=== PATIENT | male | born 1995 | race Caucasian/White ===

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

== ENCOUNTER 2018-08-02 06:24 | Day surgery (SDC) | payer OTHER ==
[~2018-08-02] VITALS: Ht 177.8 cm; Wt 88.0 kg
[2018-08-02] MEDS ORDERED: OXYMETAZOLINE NASAL SPRAY 0.05%, 15ML ONE (06:49)
[2018-08-02] MEDS ORDERED: EPINEPHRINE 1 MG/ML, 1ML ONE (06:49)
[2018-08-02] MEDS ORDERED: LIDOCAINE 1%, 20ML ONE (06:49)
[2018-08-02] MEDS ORDERED: EPINEPHRINE TOPICAL SOLN 1 MG/ML, 30ML ONE (06:49)
[2018-08-02] MEDS ORDERED: FLUORESCEIN SODIUM 500 MG/5 ML ONE (06:49)
[2018-08-02] MEDS ORDERED: BACITRACIN OINT 500U/GM, 15 GM ONE (06:50)
[2018-08-02] MEDS ORDERED: none per pt (06:55)
[2018-08-02] MEDS ORDERED: LACTATED RINGERS 1,000 ML IV SCH (06:55)
[2018-08-02 06:56] VITALS: BP 131/77
[2018-08-02] MEDS ORDERED: ACETAMINOPHEN 500 MG TABLET PO ONE (07:30)
[2018-08-02] MEDS ORDERED: GABAPENTIN 300 MG CAPSULE PO ONE (07:30)
[2018-08-02] MEDS ORDERED: SCOPOLAMINE PATCH, 1.5MG PATCH.TD72 TD ONE (07:30)
[2018-08-02] MEDS ORDERED: LABETALOL 5MG/ML, 20ML IV PRN (08:30)
[2018-08-02] MEDS ORDERED: PROCHLORPERAZINE 5 MG/ML, 2ML IV PRN (08:30)
[2018-08-02] MEDS ORDERED: DIPHENHYDRAMINE 50 MG/ML, 1ML IVPush PRN (08:30)
[2018-08-02] MEDS ORDERED: HYDROmorphone 2 MG/ML, 1ML IVPush PRN (08:30)
[2018-08-02] MEDS ORDERED: HALOPERIDOL 5 MG/ML IV PRN (08:30)
[2018-08-02] MEDS ORDERED: MEPERIDINE/PF 25MG/0.5ML IVPush PRN (08:30)
[2018-08-02] MEDS ORDERED: OXYcodone 5 MG/5 ML ORAL.SOL UDC PO PRN (08:30)
[2018-08-02] MEDS ORDERED: hydrALAzine 20 MG/ML, 1ML IV PRN (08:30)
[2018-08-02] MEDS ORDERED: METOPROLOL 1 MG/ML, 5ML IV PRN (08:30)
[2018-08-02] MEDS ORDERED: PROMETHAZINE 25 MG/ML, 1ML IV PRN (08:30)
[2018-08-02] MEDS ORDERED: FENTANYL PF 250 MCG/5ML ONE (08:31)
[2018-08-02] MEDS ORDERED: MIDAZOLAM 1 MG/ML, 2ML ONE (08:31)
[2018-08-02] MEDS ORDERED: CEFAZOLIN 1,000 MG ONE (09:26)
[2018-08-02] MEDS ORDERED: PROPOFOL 10 MG/ML, 20ML ONE (09:26)
[2018-08-02] MEDS ORDERED: SUCCINYLCHOLINE 20 MG/ML, 10ML ONE (09:26)
[2018-08-02] MEDS ORDERED: NEOSTIGMINE 1 MG/ML, 10ML ONE (09:26)
[2018-08-02] MEDS ORDERED: DEXAMETHASONE 4 MG/ML, 1ML ONE (09:26)
[2018-08-02] MEDS ORDERED: GLYCOPYRROLATE 0.2MG/1ML, 5ML ONE (09:26)
[2018-08-02] MEDS ORDERED: ONDANSETRON 2MG/ML, 2ML ONE (09:26)
[2018-08-02] MEDS ORDERED: ROCURONIUM 10MG/ML,5ML ONE (09:26)
[2018-08-02] MEDS ORDERED: FENTANYL PF 100 MCG/2ML ONE (10:29)
[2018-08-02] MEDS ORDERED: OXYcodone 5 MG/5 ML ORAL.SOL UDC ONE (10:29)
[2018-08-02] MEDS: FENTANYL PF 100 MCG/2ML IV PRN ×2 (10:33→10:39)
== END 2018-08-02 13:20 | disposition home or self-care (01) ==
LOC: OUT 06:24
PROVIDERS: ATTEND Otolaryngology
DX: J34.2 Deviated nasal septum (principal); J34.3 Hypertrophy of nasal turbinates; J32.2 Chronic ethmoidal sinusitis; J32.0 Chronic maxillary sinusitis; J30.9 Allergic rhinitis, unspecified; J34.89 Other specified disorders of nose and nasal sinuses; G43.909 Migraine, unspecified, not intractable, without status migrainosus; Z79.899 Other long term (current) drug therapy; Z72.89 Other problems related to lifestyle
CPT/HCPCS: 30520; 30930; J0171; J0330; J0690; J1100; J2250; J2405; J2704; J2710; J3010; J7120